=== PATIENT | female | born 1985 | race Caucasian/White ===

== ENCOUNTER 2019-02-27 11:16 | Emergency (ER) | payer MEDICAID ==
[~2019-02-27] VITALS: Wt 95.0 kg
[~2019-02-27 11:16] MED LIST: AUG250 PO; FLUT9.9S NASAL; IBUP-1542 PO; OFLO5DRO46 LEFT EAR; PSEU30TA38 PO; TYLENOL
[2019-02-27 11:20] VITALS: BP 136/80; PULSE 90; RESP 18
--- NOTE | 2019-02-27 12:24 | ERD ---
ER Documentation Chief Complaint Chief Complaint lip itching with no swelling or redness. no ob complaints 28wks preg. HPI This is a 33-year-old female, who is currently 28 weeks , who presents for itching over her lips bilaterally. She took loratadine, with some relief. She is otherwise doing well, she only takes prenatals, calcium and iron. She has had no rashes, no shortness of breath, no wheezing, no intraoral swelling. Noticed her lips were little swollen yesterday, but this is decreased. ROS All systems reviewed and are negative except as per history of present illness. Medications Home Meds Active Scripts Ibuprofen* (Motrin*) 600 Mg Tab, 600 MG PO Q6H PRN for PAIN AND OR ELEVATED TEMP, #30 TAB Prov:TE MCMAHON NP 06/21/16 Amoxicillin-Clavulanate K* (Augmentin*) 250 Mg Tab, 500 MG PO TID for 10 Days, TAB Prov:TE MCMAHON NP 06/21/16 Ofloxacin* (Ocuflox*) 0.3%-5 Ml Ophth Drops, 1 DROP LEFT EAR QID for 10 Days, BOTTLE Prov:TE MCMAHON NP 06/21/16 Fluticasone Propionate (Flonase Allergy Relief) 9.9 Ml Waldo.susp, 1 SPRAY NASAL BID, #1 BOTTLE TO EACH NOSTRIL Prov:AMANDEEP STACK PA-C 06/19/16 Pseudoephedrine Hcl* (Pseudoephedrine Hcl*) 30 Mg Tablet, 30 MG PO Q6 PRN for CONGESTION for 14 Days, TAB Prov:AMANDEEP STACK PA-C 06/19/16 Ibuprofen* (Motrin*) 600 Mg Tab, 600 MG PO Q6, #30 TAB Prov:AMANDEEP STACK PA-C 06/19/16 Reported Medications [Tylenol] No Conflict Check 12/22/11 Allergies Allergies: Uncoded Allergies: NONE (Allergy, Unknown, 05/16/15) PMhx/Soc History of Surgery: No Anesthesia Reaction: No Hx Neurological Disorder: No Hx Respiratory Disorders: No Hx Cardiac Disorders: No Hx Psychiatric Problems: No Hx Miscellaneous Medical Probl: No Hx Alcohol Use: No Hx Substance Use: No Hx Tobacco Use: No Physical Exam Vitals Vital Signs Date Temp Pulse Resp B/P (MAP) Pulse Ox O2 O2 Flow FiO2 Time Delivery Rate 02/27/19 98.0 90 18 136/80 98 11:20 (98) Physical Exam Const: Afebrile, nontoxic-appearing Head: Atraumatic Eyes: Normal conjunctiva ENT: Normal external ears, nose and mouth. The lips appear mildly chapped, there is no swelling, intraorally, uvula is midline, there is no lingual edema Resp: Normal respiratory effort Cardio: Abd: Soft, gravid, nontender Skin: Warm and dry, no urticaria Back: Ext: Neur: Awake and alert Psych: Normal mood and affect Procedures/MDM 33-year-old female presents for itching of her lips. Patient has no signs or symptoms of service significant allergic reaction, or anaphylaxis. No evidence of infection, recommend supportive care with antihistamines as needed, strict re turn precautions given for any signs of bradycardia, intraoral swelling, or any other signs of anaphylaxis or any signs of infection. At discharge the patient was in no distress. Departure Diagnosis: Primary Impression: Itching Condition: Stable Patient Instructions: Self-Care for Skin Rashes QUINN CASTRO MD Feb 27, 2019 12:24
== END 2019-02-27 14:14 | disposition home or self-care (01) ==
LOC: FTE 11:16
DX: O26.892 Other specified pregnancy related conditions, second trimester (principal); Z3A.28 28 weeks gestation of pregnancy
CPT/HCPCS: 99282

== ENCOUNTER 2019-05-13 14:00 | Outpatient (CLI) | payer MEDICAID ==
[2019-05-13] MEDS ORDERED: TERBUTALINE 1 MG/ML INJ SC ONE (15:30)
[2019-05-13] MEDS ORDERED: LACTATED RINGER'S 1,000 ML IV SCH (15:30)
[2019-05-13] MEDS ORDERED: NIFEdipine 10 MG CAP PO ONE (17:00)
--- NOTE | 2019-05-13 23:42 | PN ---
Triage Information Date/Time Reason for visit: Abd/pelvic pain Weeks of Gestation 36 weeks and 6 days /Para 5 para 3-0-1-3 Diabetes: none Hypertention: none Objective Heart Rate: 140's Contractions: < 5 Minutes Apart Results/Medications Results 24 hrs Laboratory Tests Test 05/13/19 16:00 Urine Color YELLOW Urine Clarity CLOUDY A Urine pH 7.0 Urine Specific Carmen 1.006 Urine Ketones NEGATIVE Urine Nitrite NEGATIVE Urine Bilirubin NEGATIVE Urine Urobilinogen NEGATIVE Urine Leukocyte Esterase 3+ H Urine Microscopic RBC 2 Urine Microscopic WBC 14 H Urine Squamous Epithelial Cells MANY A Urine Bacteria FEW A Urine Hemoglobin 1+ H Urine Glucose NEGATIVE Urine Total Protein NEGATIVE Disposition: Discharge Assessment/Plan 34 years old -0-1-3 with single intrauterine at 36 weeks and 6days ago with a JOSE ROBERTO of 06/04/2019 complaining of abdominal pain. She states good movement. She denies nausea, vomiting, shortness of breath, chest pain, headache, visual changes, vaginal bleeding or LOF. -FHR: No sign of metabolic acidosis- Category I -Contractions: Every 1-4 minutes. She received IV fluid and 1 dose of terbuta line, interval of the contraction increased -SVE: 12/50/-3/ceph/intact. No cervical changes in 3 hours observation -Ultrasound performed: Normal DEBRA, BPP 8 out of 8 -Symptoms and sign of labor, preeclampsia, kick count discussed with patient, she voiced understanding. All of her questions answered. -Patient was discharged home in stable condition with the appropriate discharge instructions provided. I would like patient to have close follow-up with her primary physician or outpatient clinic in 1-2 days or return to triage for worsening symptoms or any other urgent concerns. . UTI: Urinalysis with 14 white BC. Rocephin 1 g IV given. Prescription for cephalexin 500 mg every 6 hours p.o. given. I strongly recommend increase fluid intake. Sign and symptom of pyelonephritis discussed and recommend come back to triage with any sign or symptom of pyelonephritis. She expressed understanding. All of her questions answered. REGULO DAY May 13, 2019 23:42
--- NOTE | 2019-05-14 00:07 | TRIAGE ---
OB Triage Datetime Report Generated by CPN: 05/14/2019 00:07 Datetime: 05/13/2019 19:36 Stage of : OB Triage Datetime: 05/13/2019 19:35 Labor Evaluation Frequency: 2-6 Monitor Mode: External Duration (sec)2399: 40-90 Quality: Mild Pattern: Normal: <= 5 Contractions in 10 Minutes Resting Tone Dundas: Relaxed Heart Rate FHR Baseline Rate: 150 Monitor Mode: External US FHR Baseline Changes: No Baseline Change Variability: Moderate 6-25 bpm Accelerations: 15X15 Decelerations: None Category: Category I Vaginal Exam Dilatation (cms): 1.5 Effacement (%): 60 Station: -2 Exam By: Pao Zendejas Membrane Status: Intact Vaginal Bleeding: None Cervix, Consistency: Soft Cervix, Position: Posterior Presentation 'A': Cephalic Datetime: 05/13/2019 19:10 Monitor Mode: External Quality: Moderate Resting Tone Dund[place]: Relaxed Heart Rate FHR Baseline Rate: 150 Monitor Mode: External US Pain Presence: Intermittent Pain Type: Contraction Pain Location: Abdomen Pain Assessment Comments: Pt states 7 wnen wlking and 4 when lying down Datetime: 05/13/2019 17:30 Stage of : OB Triage Maternal Assessment Level of Consciousness: Keenly Alert, Responsive Labor Evaluation Frequency: 2-6 Monitor Mode: External Duration (sec)2399: 40-90 Quality: Moderate Resting Tone Dund[place]: Relaxed Heart Rate FHR Baseline Rate: 150 Monitor Mode: External US Variability: Moderate 6-25 bpm Accelerations: 15X15 Decelerations: None Category: Category I Pain Assessment Pain Scale: 0 Pain Goal: 3 Membrane Status: Intact Vaginal Bleeding: None Datetime: 05/13/2019 16:31 Vaginal Exam Dilatation (cms): 1.5 Effacement (%): 40 Station: -2 Exam By: KHEMANI Vaginal Bleeding: None Cervix, Consistency: Moderate Cervix, Position: Midposition Datetime: 05/13/2019 16:30 Stage of : OB Triage Maternal Assessment Level of Consciousness: Keenly Alert, Responsive Labor Evaluation Frequency: 1-4 Monitor Mode: External Duration (sec)2399: 40-80 Quality: Moderate Resting Tone D[place]: Relaxed Heart Rate FHR Baseline Rate: 150 Monitor Mode: External US Variability: Moderate 6-25 bpm Accelerations: 15X15 Decelerations: None Category: Category I Pain Assessment Pain Scale: 0 Pain Goal: 3 Membrane Status: Intact Vaginal Bleeding: None Datetime: 05/13/2019 15:30 Stage of : OB Triage Maternal Assessment Level of Consciousness: Keenly Alert, Responsive Labor Evaluation Frequency: 1-7 Monitor Mode: External Duration (sec)2399: 40-80 Quality: Moderate Resting Tone Dund[place]: Relaxed Heart Rate FHR Baseline Rate: 150 Monitor Mode: External US Variability: Moderate 6-25 bpm Accelerations: 15X15 Decelerations: None Category: Category I Pain Assessment Pain Scale: 0 Pain Goal: 3 Membrane Status: Intact Vaginal Bleeding: None Datetime: 05/13/2019 14:26 Assessment Type: Triage Maternal Assessment Level of Consciousness: Keenly Alert, Responsive DTR's/Clonus: DTRs 2+; No Clonus Headache: Denies Blurred Vision: No Respiratory Effort: Unlabored; Regular Rhythm; Equal Expansion Breath Sounds, Left: Clear and Equal Breath Sounds, Right: Clear and Equal Nausea/Vomiting: Denies RUQ Epigastric Pain: Denies Lower Extremities Edema: None Degree: None Upper Extremities Edema: None Degree: None Facial Edema: None Fall Risk Assessment History of Falling: (0) No Secondary Diagnosis: (0) No Ambulatory Aid: (0) Bedrest/Nurse Assist IV Therapy: (0) No Gait: (0) Normal/Bedrest/Immobile Mental Status: (0) Oriented to Own Ability Fall Score: 0 Fall Risk Score Definition: No Risk: No action required Datetime: 05/13/2019 14:24 Monitor Mode: External Monitor Mode: External US Datetime: 05/13/2019 14:18 Time of Arrival: 05/13/2019 13:52 EGA: 36.6 Arrived By: Ambulatory Arrived From: Office Chief Complaint: PT. SENT FOR R/O PTL Movement: Present Contractions: Denies/Absent Rupture of Membranes: Denies Vaginal Bleeding: None Vaginal Discharge: Denies Recent Sexual Intercouse: Denies Abdominal Trauma: Not Applicable Patient Complaints: None Time Provider Notified: 05/13/2019 14:15 Provider Notified: HADADIAN Initial Plan: NST/PO HYDRATION/SVE/BPP/TERB.
[2019-05-24] MEDS ORDERED: PREN-93 PO (07:43)
== END 2019-05-13 19:52 | disposition home or self-care (01) ==
LOC: OBT 14:00 → L-D 14:01 → OBT 19:52
PROVIDERS: ATTEND Obstetrics & Gynecology
DX: O26.892 Other specified pregnancy related conditions, second trimester (principal); R10.2 Pelvic and perineal pain; O09.523 Supervision of elderly multigravida, third trimester; Z3A.36 36 weeks gestation of pregnancy
CPT/HCPCS: 36415; 76818; 81001; 96360; 96361; J3105; J7120; Z7500; Z7610; G0463